=== PATIENT | female | born 1975 | race Caucasian/White ===

== ENCOUNTER 2019-08-16 06:50 | Emergency (ER) | payer OTHER ==
[~2019-08-16] VITALS: Ht 170.2 cm; Wt 81.7 kg
[2019-08-16] MEDS ORDERED: FLEXERIL PO (07:14)
[2019-08-16] MEDS ORDERED: IMITREX 25 MG T25 M1 PO (07:15)
[2019-08-16] MEDS ORDERED: TRAMADOL 50 MG50 MG PO (07:15)
[2019-08-16] MEDS ORDERED: COZAAR 25 MG TA25 M1 PO (07:15)
[2019-08-16] MEDS ORDERED: VERAPAMIL ER100 MG PO (07:15)
[2019-08-16 07:44] LABS: ABSOLUTE EOSINOPHILS 0.2 thou/uL (0.0-0.7); ABSOLUTE LYMPHOCYTES 1.9 thou/uL (0.8-5.3); ABSOLUTE MONOCYTES 1.1 thou/uL (0.0-1.2); BASOPHILS 0.4 %; HEMATOCRIT 43.5 % (37.0-47.0); HEMOGLOBIN 15.1 gm/dL (12.0-15.0); MCHC 34.7 g/dL (28.0-37.0); MCV 86.5 fL (80.0-100.0); MONOCYTES 10.7 %; MPV 8.6 fl. (7.2-11.1); NUCLEATED RBCS 0 /100WBC; PLATELET COUNT* 209 thou/uL (150-400); POLYS 67.9 %; RBC 5.03 mil/uL (4.20-5.00); RDW-CV 13.1 % (10.5-14.5); WBC 10.2 thou/uL (4.0-11.0)
[2019-08-16 07:58] LABS: CALCIUM 8.1 mg/dL (8.5-10.1); CREATININE 0.7 mg/dL (0.6-1.3); POTASSIUM 4.1 mmol/L (3.5-5.1)
[2019-08-16 08:09] LABS: ALBUMIN 3.2 g/dL (3.4-5.0); TOTAL BILIRUBIN 0.3 mg/dL (<0.1-1.0); TOTAL PROTEIN 6.7 g/dL (6.4-8.2)
[2019-08-16] MEDS ORDERED: MEDROLDOSEPACK PO (10:34)
[2019-08-16 10:37] VITALS: BP 105/53
--- NOTE | 2019-08-18 13:56 | EKG ---
[place] [address] ELECTROCARDIOGRAM REPORT Name: CHERELLE WALLS Room: [facility]#: [id number] Admission: 08/16/19 Attend Phys: Discharge: 08/16/19 Date of : 79 Date of Service: 08/16/19704 Report #: [id number] THIS REPORT FOR: cc: Antoine Ramos. Antoine Null. Corwin Loving MD [facility] ~ THIS REPORT FOR: //name// [facility] [place] ED Test Date: 2019-08-16 Test Time: 07:05:32 Pat Name: CHERELLE WALLS Department: Room: Gender: F Etcher Enameling: FLORENCIO : 1975 Requested By: Zenia Conroy Order Number: [id number] MD: Corwin Betancourt Measurements Intervals [place] Rate: 86 P: 33 FL: 131 QRS: 57 QRSD: 93 T: 36 QT: 365 QTc: 437 Interpretive Statements Sinus rhythm Low voltage, precordial leads No previous ECG available for comparison Electronically Signed On 08-16-2019 16:10:58 PIPE [employer] by Corwin Betancourt [email or web address] <ELECTRONICALLY SIGNED> By: Corwin Betancourt MD, FACC 08/16/19 1610 0705 Corwin Betancourt MD, FAC /EPI
== END 2019-08-16 10:38 | disposition home or self-care (01) ==
LOC: M.ERS 06:50
PROVIDERS: Personal Emergency Response Attendant
DX: K14.8 Other diseases of tongue (principal); T36.8X5A Adverse effect of other systemic antibiotics, initial encounter; F17.200 Nicotine dependence, unspecified, uncomplicated; Z90.710 Acquired absence of both cervix and uterus; Z88.2 Allergy status to sulfonamides; Z88.8 Allergy status to other drugs, medicaments and biological substances; Y92.89 Other specified places as the place of occurrence of the external cause

== ENCOUNTER → 2021-03-20 | Outpatient (CLI) | payer OTHER ==
[~2021-03-20] MED LIST: COZAAR 25 MG TA25 M1 PO; FLEXERIL PO; IMITREX 25 MG T25 M1 PO; MEDROLDOSEPACK PO; TRAMADOL 50 MG50 MG PO; VERAPAMIL ER100 MG PO
== END ==
LOC: M.MRI 08:17
PROVIDERS: ATTEND Nurse Practitioner Family
DX: M75.101 Unspecified rotator cuff tear or rupture of right shoulder, not specified as traumatic (principal)